=== PATIENT | male | born 1960 | race Caucasian/White ===

== ENCOUNTER 2022-04-24 22:52 | Emergency (ER) | payer OTHER ==
[~2022-04-24] VITALS: Ht 167.6 cm; Wt 90.7 kg
--- NOTE | 2022-04-25 00:51 | NUR ---
BIBS FOR C/O L SIDED ABD PAIN, HEMATURIA AND ON AND OFF FEVER SINCE YESTERDAY NIGHT. +N/V. PT A/OX4. TOLERATING R/A WELL WITH NO RESP DISTRESS. RR EVEN AND NONLABORED. CONNECTED PT TO POX AND MONITOR. SAFETY MEASURES IN PLACE.
--- NOTE | 2022-04-25 01:13 | NUR ---
URINE COLLECTED AND SENT TO LAB
--- NOTE | 2022-04-25 01:26 | NUR ---
IV ESTABLISHED RAC #18G S/L; BLOOD COLLECTED AND SENT TO LAB
[2022-04-25] MEDS ORDERED: KETOROLAC TROMETHAMINE 15 MG/ML VIAL ONE (01:29)
[2022-04-25] MEDS ORDERED: IV NS 0.9% 1,000 ML IV ONE (01:30)
[2022-04-25] MEDS ORDERED: KETOROLAC TROMETHAMINE INJ 30 MG/ML VIAL IV ONE (01:30)
--- NOTE | 2022-04-25 01:46 | NUR ---
Edward sifuentes in EDM - 04/25/22 at 0150 by MARTIN Patient discharged to [facility] custody in stable condition. Written and verbal after care instructions given. Patient verbalizes understanding of instruction.
[2022-04-25 02:05] LABS: BASOPHILS % (AUTO) 0.3 % (0.0-2.0); HEMATOCRIT 49 % (39-51); HEMOGLOBIN 16.8 g/dL (13.5-17.5); LYMPHOCYTES # (AUTO) 0.9 K/uL (0.8-4.8); LYMPHOCYTES % (AUTO) 9.2 % (20.0-44.0); MEAN CORPUSCULAR HGB CONC 34 g/dl (31.0-36.0); MEAN CORPUSCULAR VOLUME 91 fL (80-96); MONOCYTES # (AUTO) 0.6 K/uL (0.1-1.30); MONOCYTES % (AUTO) 6.4 % (2.0-12.0); NEUTROPHILS # (AUTO) 8.5 K/uL (1.8-8.9); NEUTROPHILS % (AUTO) 84.1 % (43.0-81.0); PLATELET COUNT (AUTO) 199 K/uL (150-450); RED BLOOD CELL COUNT(AUTO) 5.42 MIL/uL (4.5-6.0); WHITE BLOOD COUNT (AUTO) 10.2 K/uL (4.3-11.0)
[2022-04-25 02:11] LABS: BILIRUBIN,URINE 1+ (NEGATIVE); COLOR,URINE DARK YELLOW (YELLOW); LEUKOCYTE ESTERASE ,URINE NEGATIVE (NEGATIVE); NITRITE, URINE NEGATIVE (NEGATIVE); PH,URINE 5.5 (5.0-8.0); PROTEIN,URINE 2+ mg/dl (NEGATIVE); UGLUCOSE NEGATIVE (NEGATIVE); UROBILINOGEN,URINE 0.2 EU/dL (0.2)
[2022-04-25 02:15] LABS: CALCIUM, SERUM 9.5 mg/dL (8.5-10.1); CREATININE 1.2 mg/dL (0.6-1.3); POTASSIUM 3.6 mmol/L (3.5-5.1)
--- NOTE | 2022-04-25 02:15 | NUR ---
CALLED RADIOLOGY TO F/U REGARDING PT GETTING CT DONE.
--- NOTE | 2022-04-25 02:16 | NUR ---
PT TAKEN TO CT VIA VISHAL
[2022-04-25 02:20] LABS: ALBUMIN 4.4 g/dL (3.4-5.0); BILIRUBIN,TOTAL 0.8 mg/dL (0.2-1.0); TOTAL PROTEIN, SERUM 8.5 g/dL (6.4-8.2)
[2022-04-25 02:30] LABS: RBC,URINE 21-50 /HPF (0-2)
[2022-04-25 02:31] LABS: BACTERIA,URINE Rare /HPF (None Seen); SQUAMOUS EPITHELIAL CELL,UR Moderate /HPF (None Seen)
[2022-04-25 02:51] VITALS: BP 142/92
[2022-04-25] MEDS ORDERED: KETO10TA2 PO (03:25)
[2022-04-25] MEDS ORDERED: TAMS-12 PO (03:25)
--- NOTE | 2022-04-25 04:32 | NUR ---
Patient discharged to home in stable condition. RX Written and verbal after care instructions given. Patient verbalizes understanding of instruction. PT ambulatory with a steady gait
--- NOTE | 2022-04-25 11:29 | NUR ---
PT STATED PREFERRED [facility] LOCATION AT [address] [place] [address].
== END 2022-04-25 04:37 | disposition home or self-care (01) ==
LOC: ER 22:58
DX: N20.0 Calculus of kidney (principal); R10.32 Left lower quadrant pain; Z87.442 Personal history of urinary calculi; Z79.899 Other long term (current) drug therapy
CPT/HCPCS: 99284; 74176; 96374; 96361; 85025; 81001; 36415; 80053; J7030; J1885